=== PATIENT | male | born 1990 | race Caucasian/White ===

== ENCOUNTER 2017-03-05 22:09 | Observation (INO) ==
--- NOTE | 2017-03-05 22:40 | Emergency Department Note ---
Disposition Clinical Impression: Cellulitis of scrotum, Left arm cellulitis, Sepsis, Open wound of scrotum Disposition: Admitted As Inpatient Referrals: Unassigned,Provider [Non-Partnered Physician] - Forms: ED Satisfaction Letter General Adult HPI - General Chief complaint: ED Skin/Abscess/Foreign Body Stated complaint: L arm/testicles red and painful Source: patient Limitations: no limitations - History of Present Illness HPI Narrative: 26-year-old male reports emergency department complaining of swelling and redness of the left triceps area, he thinks he has an infection. The patient reports he had a pimple there and his mother popped it now has become increasingly swollen red and painful. There is no history of bug bite or laceration. The patient also reports scrotal swelling redness and pain with an open lesion, he reports there was a pimple and he popped it and now he thinks he may have an infection. There is no history of perirectal or perennial involvement. The patient is not known to be diabetic. There is no history of vomiting diarrhea or abdominal pain. No acute chest pain or shortness of breath. No leg swelling or pain or syncope. No trauma. The patient is been voiding without difficulty. No back pain or bloody urine. There is no history of fever. No syncope headache neck stiffness convulsions or confusion no trouble walking talking hearing seeing or speaking. He does not report his last tetanus shot was. There is no history of laceration to the genital area or trauma or foreign body. Pain Scale: 6 - Related Data Allergies Allergy/AdvReac Type Severity Reaction Status Date / Time No Known Allergies Allergy Verified 03/05/17 22:19 All systems ED: reviewed and negative except as stated. Past Medical History - Past Medical History Medical history: Reports: no medical history - Social History Smoking Status: Current every day smoker Smokeless Tobacco Status: No Alcohol use: Reports: occasionally Drug use: Reports: none Physical Exam - General Limitations: no limitations General appearance: alert, in no apparent distress - Head Head exam: atraumatic, normocephalic, normal inspection - Eye Eye exam: Present: normal appearance, PERRL, EOMI. Absent: scleral icterus, conjunctival injection, miosis, mydriasis - ENT ENT exam: normal exam, normal oropharynx, mucous membranes moist, TM's normal bilaterally, normal external ear exam - Neck Neck exam: Present: normal inspection, full ROM, trachea midline. Absent: tenderness - Chest Chest inspection: Present: symmetric chest wall rise. Absent: tenderness - Respiratory Respiratory exam: Present: normal lung sounds bilaterally. Absent: respiratory distress, wheezes, stridor, accessory muscle use, prolonged expiratory phase - Cardiovascular Cardiovascular exam: Present: regular rate, normal rhythm, normal heart sounds - Abdominal Exam Abdominal exam: Present: soft, Non-Tender, normal bowel sounds. Absent: tenderness, distention, guarding, rebound, rigidity - Rectal Exam Medical Scientist present during exam: Yes - Male exam: Present: other (Open lesion scrotal area purulent drainage reddening retractile penis no subsequent scrotal or perennial involvement noted. No evidence of bruising or blistering.) - Extremities Exam Extremities exam: Present: full ROM, normal capillary refill, other (Left upper extremity triceps area shows markedly reddening tenderness and change consistent with cellulitis. No fluctuance or abscess noted. There is no evidence of open lesion. No drainage. No scaling blackening of the skin crepitance or blistering. No axillary involvement. All 4 extremities are otherwise warm and well-perfused show good range of motion throughout without evidence of injury or pedro abnormality.). Absent: pedal edema, joint swelling , calf tenderness - Expanded Lower Extremity Exam Lower leg exam: Absent: Homans' sign Neurovascular/Tendon exam: Present: normal capillary refill. Absent: pulse deficit, motor deficit, sensory deficit, tendon deficit, extremity cold to touch , pallor - Back Exam Back exam: Present: normal inspection, full ROM. Absent: tenderness, CVA tenderness (R), CVA tenderness (L), vertebral tenderness - Neurological Exam Neurological exam: Present: alert, oriented X3, CN II-XII intact. Absent: motor sensory deficit - Psychiatric Psychiatric exam: Present: normal affect, normal mood - Skin Skin exam: Present: warm, dry, intact, normal color, erythema, other ( Cellulitic change in the scrotal and left triceps areas noted.). Absent: rash, cyanosis, diaphoresis, pallor, mottled Course - Reevaluation(s) Reevaluation #1: Bedside ultrasound does not demonstrate a large focal abscess that I can see in the arm area, there may be some phlegmonous change. A CT of the upper extremities been ordered for definitive imaging. The patient does not appear to have a scrotal abscess, he has an open lesion that is draining. Wound cultures are been ordered. Antibiotics and tetanus shot of also been ordered IV fluids and been given. The patient has a heart rate over 90 an elevated white count and a source for infection he meets Sirs/sepsis criteria. Lactic acid negative. Pending consultation with the hospitalist for admission. Secondary surgical consult if abscess identified, urologic consult also considered. Vital Signs Temperature 99.5 F 03/05/17 22:15 Pulse Rate 92 03/05/17 22:15 Respiratory Rate 20 03/05/17 22:15 Blood Pressure 138/77 03/05/17 22:15 O2 Sat by Pulse Oximetry 98 03/05/17 22:15 Temperature 99.5 F 03/05/17 22:15 Pulse Rate 92 03/05/17 22:15 Respiratory Rate 20 03/05/17 22:15 Blood Pressure 138/77 03/05/17 22:15 O2 Sat by Pulse Oximetry 98 03/05/17 22:15 Oxygen Delivery Oxygen Delivery Room Air Medical Decision Making - [facility] Narrative Medical decision making narrative: The patient has cellulitis left arm and scrotum. He meets Sirs sepsis criteria. IV fluids vancomycin and Zosyn given. Pain control measures given tetanus booster given. I discussed the case with with Dr. Mejía, urologist who will act as health and safety consultant. I have discussed the case with the hospitalist on-call who has accepted the patient to their care as the primary admitting service. CT scan left humerus pending to evaluate further. The patient is currently stable. - Lab Data Lab results reviewed: Yes I reviewed the patient's lab results. Result diagrams: 03/05/17 22:55 03/05/17 22:55 Lab Results 03/05/17 03/05/17 03/05/17 Range/Units 22:55 22:55 22:55 WBC 14.7 H (4.3-11.1) K/mcL RBC 4.87 (4.19-5.50) M/mcL Hgb 12.6 L (12.9-16.9) g/dL Hct 39.7 (37.5-50.1) % MCV 81.5 L (83.0-100.0) fL MCH 25.9 L (28.0-33.3) pg MCHC 31.7 (31.6-35.5) g/dL RDW 14.6 H (11.5-14.5) % Plt Count 244 (140-400) K/mcL MPV 10.2 (9.4-12.4) fL Immature Gran % 0.5 (0-4) % Seg Neutrophils % 76.0 % Lymphocytes % 13.5 % Monocytes % 6.5 % Eosinophils % 3.0 % Basophils % 0.5 % Neutrophils # 11.2 H (1.6-8.9) K/mcL Lymphocytes # 2.0 (0.6-4.6) K/mcL Monocytes # 1.0 (0.0-1.3) K/mcL Eosinophils # 0.4 (0.0-0.6) K/mcL Basophils # 0.1 (0.0-0.2) K/mcL Immature Plt Fraction 7.1 H (1.1-6.1) % Sodium 139 (136-145) mEq/L Potassium 3.5 (3.5-4.5) mEq/L Chloride 105 (98-109) mEq/L Carbon Dioxide 24 (19-29) mEq/L BUN 9 (8-26) mg/dL Creatinine 0.87 (0.72-1.25) mg/dL Est GFR ( Amer) > 60 (> 60) Est GFR (Non-Af Amer) > 60 (> 60) BUN/Creatinine Ratio 10 (6-26) Glucose 97 (70-99) mg/dL Calculated Osmolality 287 (280-300) Lactic Acid 1.1 (0.5-2.2) mmol/L Calcium 9.0 (8.6-10.8) mg/dL Total Bilirubin 0.6 (0.2-1.2) mg/dL Direct Bilirubin 0.3 (0.0-0.5) mg/dL Indirect Bilirubin 0.3 (0.0-1.2) mg/dL AST 11 (5-34) Units/L ALT 17 (0-55) Units/L Alkaline Phosphatase 102 (38-126) Units/L C-Reactive Protein 105 H (Less than 5) mg/L Serum Total Protein 7.2 (6.0-8.3) g/dL Albumin 3.2 L (3.5-5.0) g/dL Globulin 4.0 H (2.4-3.5) g/dL Albumin/Globulin Ratio 0.8 L (1.1-2.2)
[2017-03-05] MEDS ORDERED: 0.9 % Sodium Chloride 1,000 ML IVC SCH (23:00)
[2017-03-05] MEDS ORDERED: Piperacillin/Tazobactam 3.375 GM in D5% in Water (Mini-Bag+) 100 ML IVPB ONE (23:00)
[2017-03-05] MEDS ORDERED: Tdap (Boostrix) Vaccine 0.5 ML SYRINGE IM ONE (23:00)
[2017-03-05] MEDS ORDERED: Vancomycin 1,000 MG in D5% in Water 250 ML IVPB ONE (23:00)
[2017-03-05] MEDS ORDERED: *HR* OxyCODONE/APAP 5/325 TABLET PO ONE (23:01)
[2017-03-05 23:20] LABS: Basophils # 0.1 K/mcL (0.0-0.2); Basophils % 0.5 %; Eosinophils # 0.4 K/mcL (0.0-0.6); Hematocrit 39.7 % (37.5-50.1); Hemoglobin 12.6 g/dL (12.9-16.9); Immature Granulocytes % 0.5 % (0-4); Immature Platelets 7.1 % (1.1-6.1); Lymphocytes % 13.5 %; Mean Corpuscular HGB Conc 31.7 g/dL (31.6-35.5); Mean Corpuscular Hemoglobin 25.9 pg (28.0-33.3); Mean Corpuscular Volume 81.5 fL (83.0-100.0); Mean Platelet Volume 10.2 fL (9.4-12.4); Monocytes % 6.5 %; Neutrophils # 11.2 K/mcL (1.6-8.9); Platelet Count 244 K/mcL (140-400); Red Blood Count 4.87 M/mcL (4.19-5.50); Red Cell Distribution Width 14.6 % (11.5-14.5)
[2017-03-05 23:34] LABS: Alanine Aminotransferase 17 Units/L (0-55); Albumin 3.2 g/dL (3.5-5.0); Albumin/Globulin Ratio 0.8 (1.1-2.2); Alkaline Phosphatase 102 Units/L (38-126); Aspartate Amino Transferase 11 Units/L (5-34); BUN/Creatinine Ratio 10 (6-26); Bilirubin,Direct 0.3 mg/dL (0.0-0.5); Bilirubin,Indirect 0.3 mg/dL (0.0-1.2); Bilirubin,Total 0.6 mg/dL (0.2-1.2); Blood Urea Nitrogen 9 mg/dL (8-26); C-Reactive Protein 105 mg/L (Less than 5); Carbon Dioxide 24 mEq/L (19-29); Chloride 105 mEq/L (98-109); Glucose 97 mg/dL (70-99); Osmolality,Calculated 287 (280-300); Potassium 3.5 mEq/L (3.5-4.5); Sodium 139 mEq/L (136-145); Total Protein 7.2 g/dL (6.0-8.3); eGFR For African Americans > 60 (> 60); eGFR For Non-African Americans > 60 (> 60)
[2017-03-06] MEDS ORDERED: Naloxone 0.4 MG/ML INJ IVP PRN (00:53)
[2017-03-06] MEDS ORDERED: Ondansetron 4 MG/2 ML VIAL IVP PRN (00:53)
[2017-03-06] MEDS ORDERED: Acetaminophen 325 MG TABLET PO PRN (00:56)
[2017-03-06 01:16] LABS: Bilirubin,Urine Small (Negative); Blood,Urine Negative (Negative); Clarity,Urine Cloudy (Clear); Color,Urine Dark Yellow (Yellow); Glucose,Urine (UA) Normal (Normal); Ketones,Urine Negative (Negative); Leukocyte Esterase,Urine Small (Negative); Nitrite,Urine Negative (Negative); PH,Urine 7.5 pH Units (5.0-8.0); Protein,Urine Trace mg/dL (Neg-Trace); Specific Gravity,Urine > 1.030 (1.010-1.025)
[2017-03-06 01:18] LABS: Bacteria,Urine None Seen per hpf (None-Few); Hyaline Casts,Urine None Seen per lpf (None-Few); RBC,Urine 0-3 per hpf (0-3); Squamous Epithelial Cell,Urine Many per lpf (None-Few); WBC,Urine 15-30 per hpf (0-3)
[2017-03-06] MEDS ORDERED: Nicotine 21 MG PATCH.TD24 TD PRN (01:59)
[2017-03-06] MEDS ORDERED: Vancomycin 1,000 MG in D5% in Water 250 ML IVPB ONE (02:00)
--- NOTE | 2017-03-06 02:04 | Internal Med History&Physical ---
Date of Encounter: 03/06/17 Time of Encounter: 01:30 Assessment and Plan (1) Left arm cellulitis Current visit: Yes Status: Acute CT humerus noted, findings consistent with cellulitis will continue empiric abx therapy with IV vancomycin and Zosyn pharmacy to dose vancomycin and monitor trough follow up blood cultures de-escalate therapy as per clinical response and culture results pain control IV fluids (2) Cellulitis of scrotum Current visit: Yes Status: Acute Open draining wound f/u wound cultures wound care Urology consultation requested by the ER physician continue IV abx (3) Tobacco abuse Current visit: Yes Status: Acute smoking cessation counseling provided not ready to quit at this time nicotine supplementation provided (4) Morbid obesity with BMI of 50.0-59.9, adult Current visit: Yes Status: Chronic (5) DVT prophylaxis Current visit: Yes Status: Acute early ambulation Internal Medicine - H&P: HPI Chief complaint: left arm and scrotum pain Admitted From: Home Plans for Post Hospital Care: Home History of present illness: Mr. Grimm is a 26 year old male with PMH Of morbid obesity and chronic tobacco abuse presents to the ER for evaluation of worsening left arm pain, worsening drainage from scrotum, and fevers/chills. Patient reports of having a small pimple on his left tricep which has gradually progressed into full upper extremity erythema associated with pain. He also states he noticed a small pimple on his scrotum, which has gradually worsened and is currently draining pustular discharge. States he has difficulty walking due to the pain in his scrotum. Reports of having erythema on the scrotum in the past but no history of discharge. Denies any dysuria, or urinary difficulties. Denies any history of STI. At this time he resting in bed and denies any discomfort. Pain is controlled with the pain medications he received in the ER. Denies any sob, abd pain, n/v, fever, or chills at this time. Reports of being an everyday smoker. Past Med Surg Social Fam HX - Past Medical History Medical history: no medical history - Social History Smoking Status: Current every day smoker Smokeless Tobacco Status: No Alcohol use: occasionally Drug use: none Internal Medicine - H&P: Meds Allergies No Known Allergies Allergy (Verified 03/05/17 22:19) All Systems PM: A 10-system review of systems was performed and is negative for pertinent findings except as documented above in the HPI. - Constitutional Constitutional: as per HPI - Constitutional Vitals: Temp Pulse Resp BP Pulse Ox 99.3 F 85 14 133/88 97 03/06/17 01:43 03/06/17 01:43 03/06/17 01:43 03/06/17 01:43 03/06/17 01:43 General appearance: Present: cooperative, A&O X 3, morbidly obese, no acute distress, answers questions appropriately - Head Head exam: Present: atraumatic, normocephalic - Eye Eye exam: Present: normal appearance, conjuntiva pink, sclera anicteric - Respiratory Respiratory exam: Present: CTAB. Absent: respiratory distress, wheezes - Cardiovascular Cardiovascular exam: Present: RRR, +S1, +S2. Absent: diastolic murmur, gallop, rubs, systolic murmur - GI/Abdominal GI/Abdominal exam: Present: distended (obese), normal bowel sounds, soft, no peritoneal signs. Absent: tenderness - Additional comments: (Open lesion scrotal area with purulent drainage, No evidence of bruising or blistering - Extremities Exam Extremities exam: Present: warm, radial pulses palpable and symetrical. Absent : calf tenderness, cyanotic, pedal edema - Skin Additional comments: erythema noted on enid/lateral aspect of left distal arm Internal Med - H&P Results - Labs CBC & Chem 7: 03/05/17 22:55 03/05/17 22:55
[2017-03-06] MEDS: 0.9 % Sodium Chloride 1,000 ML IVC SCH ×2 (04:46→21:54)
[2017-03-06 05:37] LABS: Basophils # 0.1 K/mcL (0.0-0.2); Basophils % 0.5 %; Eosinophils # 0.4 K/mcL (0.0-0.6); Eosinophils % 3.4 %; Hemoglobin 11.5 g/dL (12.9-16.9); Immature Granulocytes % 0.5 % (0-4); Lymphocytes # 2.4 K/mcL (0.6-4.6); Lymphocytes % 18.8 %; Mean Corpuscular HGB Conc 31.9 g/dL (31.6-35.5); Mean Corpuscular Hemoglobin 26.3 pg (28.0-33.3); Mean Corpuscular Volume 82.2 fL (83.0-100.0); Mean Platelet Volume 11.2 fL (9.4-12.4); Monocytes # 0.9 K/mcL (0.0-1.3); Monocytes % 6.9 %; Neutrophils # 8.9 K/mcL (1.6-8.9); Platelet Count 246 K/mcL (140-400); Red Blood Count 4.38 M/mcL (4.19-5.50); Red Cell Distribution Width 14.6 % (11.5-14.5); Segmented Neutrophils % 69.9 %
[2017-03-06 05:39] LABS: BUN/Creatinine Ratio 11 (6-26); Blood Urea Nitrogen 9 mg/dL (8-26); Calcium 8.3 mg/dL (8.6-10.8); Carbon Dioxide 25 mEq/L (19-29); Chloride 106 mEq/L (98-109); Glucose 108 mg/dL (70-99); Magnesium 1.5 mg/dL (1.6-2.6); Osmolality,Calculated 287 (280-300); Phosphorous 4.2 mg/dL (2.3-4.7); Potassium 3.8 mEq/L (3.5-4.5); Sodium 139 mEq/L (136-145); eGFR For African Americans > 60 (> 60); eGFR For Non-African Americans > 60 (> 60)
[2017-03-06] MEDS ORDERED: Vancomycin 1,250 MG in D5% in Water 250 ML IVPB SCH (06:00)
--- NOTE | 2017-03-06 07:58 | Urology - Consult Note ---
Date of Encounter: 03/06/17 Time of Encounter: 07:54 - Assessment and Plan (1) Open wound of scrotum Current Visit: Yes Status: Acute Assessment and plan: continue broad spectrum abx at this time. expect that this will resolve with abx. will reeval tomorrow morning. Qualifiers: Encounter type: initial encounter Qualified Code(s): S31.30XA - Unspecified open wound of scrotum and testes, initial encounter Urology CN:HPI Consult date: 03/06/17 Reason for consult Urology: Other (scrotal cellulutis) Requesting physician: Jackelin Conner History of present illness: Ulysses is a 26-year-old morbidly obese male with a five-day history of scrotal visit which he states spread. Patient is also admitted for left upper arm cellulitis. Patient states that he is not diabetic. NO trouble with voiding. Past Med Surg Social Fam HX - Past Medical History Medical history: no medical history Psychiatric history: depression - Social History Smoking Status: Current every day smoker Smokeless Tobacco Status: No Alcohol use: occasionally Drug use: none - Family History Mother Age: 41 Living Status: Still Living Hx Family Cardiac Disorders: Yes (hypertension) Hx Family Respiratory Disorders: Yes (asthma, copd) Medications and Allergies Allergies No Known Allergies Allergy (Verified 03/05/17 22:19) Review of Systems - Constitutional fever(s) - EENT Nose, mouth and throat: no dizziness - Cardiovascular no chest pain - Respiratory no cough - Gastrointestinal no abdominal pain - Genitourinary as per HPI - Musculoskeletal as per HPI - Integumentary erythema - Neurological no confusion - Psychiatric no anxiety - Hematologic/Lymphatic no easy bleeding Exam Initial Vital Signs Temp Pulse Resp BP Pulse Ox 99.5 F 92 20 138/77 98 03/05/17 22:15 03/05/17 22:15 03/05/17 22:15 03/05/17 22:15 03/05/17 22:15 - General physical appearance Present: well developed - Neck Present: no masses - Respiratory Present: normal respiratory effort - Cardiovascular Cardiovascular exam IM: RRR - Abdomen Abdomen: Present: soft (morbidly obese) - Genitourinary other (inflammed indurated area on right hemiscrotum. some exudate noted. no obvious fluctuance) Urology Results - Labs 03/06/17 04:33 03/06/17 04:33 Abnormal lab results WBC 12.8 K/mcL (4.3-11.1) H 03/06/17 04:33 Hgb 11.5 g/dL (12.9-16.9) L 03/06/17 04:33 Hct 36.0 % (37.5-50.1) L 03/06/17 04:33 MCV 82.2 fL (83.0-100.0) L 03/06/17 04:33 MCH 26.3 pg (28.0-33.3) L 03/06/17 04:33 RDW 14.6 % (11.5-14.5) H 03/06/17 04:33 Immature Plt Fraction 7.1 % (1.1-6.1) H 03/05/17 22:55 Glucose 108 mg/dL (70-99) H 03/06/17 04:33 Calcium 8.3 mg/dL (8.6-10.8) L 03/06/17 04:33 Magnesium 1.5 mg/dL (1.6-2.6) L 03/06/17 04:33 C-Reactive Protein 105 mg/L (Less than 5) H 03/05/17 22:55 Albumin 3.2 g/dL (3.5-5.0) L 03/05/17 22:55 Globulin 4.0 g/dL (2.4-3.5) H 03/05/17 22:55 Albumin/Globulin Ratio 0.8 (1.1-2.2) L 03/05/17 22:55 Urine Clarity Cloudy (Clear) A 03/05/17 22:45 Ur Specific [place] > 1.030 (1.010-1.025) H 03/05/17 22:45 Urine Bilirubin Small (Negative) H 03/05/17 22:45 Urine Urobilinogen 2.0 mg/dL (Normal) H 03/05/17 22:45 Ur Leukocyte Esterase Small (Negative) H 03/05/17 22:45 Urine Microscopic WBC 15-30 per hpf (0-3) H 03/05/17 22:45 Ur Squamous Epith Cells Many per lpf (None-Few) H 03/05/17 22:45 Ur Culture Indicated? YES (NO) A 03/05/17 22:45 Diabetes panel 03/06/17 Range/Units 04:33 Sodium 139 (136-145) mEq/L Potassium 3.8 (3.5-4.5) mEq/L Chloride 106 (98-109) mEq/L Carbon Dioxide 25 (19-29) mEq/L BUN 9 (8-26) mg/dL Creatinine 0.81 (0.72-1.25) mg/dL Glucose 108 H (70-99) mg/dL Calcium 8.3 L (8.6-10.8) mg/dL Calcium panel 03/06/17 Range/Units 04:33 Calcium 8.3 L (8.6-10.8) mg/dL Phosphorus 4.2 (2.3-4.7) mg/dL Pituitary panel 03/06/17 Range/Units 04:33 Sodium 139 (136-145) mEq/L Potassium 3.8 (3.5-4.5) mEq/L Chloride 106 (98-109) mEq/L Carbon Dioxide 25 (19-29) mEq/L BUN 9 (8-26) mg/dL Creatinine 0.81 (0.72-1.25) mg/dL Glucose 108 H (70-99) mg/dL Calcium 8.3 L (8.6-10.8) mg/dL Adrenal panel 03/06/17 Range/Units 04:33 Sodium 139 (136-145) mEq/L Potassium 3.8 (3.5-4.5) mEq/L Chloride 106 (98-109) mEq/L Carbon Dioxide 25 (19-29) mEq/L BUN 9 (8-26) mg/dL Creatinine 0.81 (0.72-1.25) mg/dL Glucose 108 H (70-99) mg/dL Calcium 8.3 L (8.6-10.8) mg/dL All other labs normal. Consult Discharge Plan - Plan Referrals: Oseas Chan DO [Primary Care Provider] -
[2017-03-06] MEDS: *HR* OxyCODONE Immed Rel 5 MG TABLET PO PRN ×2 (08:21→15:48)
[2017-03-06] MEDS: Piperacillin/Tazobactam 3.375 GM in D5% in Water (Mini-Bag+) 100 ML IVPB SCH ×3 (08:22→23:59)
[2017-03-06] MEDS ORDERED: Magnesium Sulfate 2 GM in D5% in Water 100 ML IVPB ONE (11:21)
--- NOTE | 2017-03-06 11:34 | Event Note ---
Date of Encounter: 03/06/17 Time of Encounter: 11:34 26 year old male with no significant medical history, admitted with left arm and right scrotal pain, noted to have cellulitis with no focal abscess in left arm and right srotum; Patient seen and examined at bedside. Reports improvement in left arm and scrotal pain; no fever/chills; Awake, alert, oriented*3, morbidly obese Left UE- erythema, induration mostly in medial proximal arm, improving Scrotum- erythematous; right scrotal small wounds, slight yellowish discharge, improving tenderness Labs reviewed- improving leukocytosis Left arm cellulitis- likely secondary to infected follliculitis. Continue IV Vancomycin and Zosyn and f/up blood cultures. Pain control with PO Percocet; left UE elevation; Right scrotal abscess- unclear etiology. Urology consult appreciated, agree with medical management with antibiotics; f/up wound and blood cultures and adjust antibiotics;
[2017-03-06] MEDS: Vancomycin 2,000 MG in D5% in Water 500 ML IVPB SCH ×2 (13:19→23:58)
[2017-03-07 05:12] LABS: Basophils # 0.1 K/mcL (0.0-0.2); Basophils % 0.8 %; Eosinophils # 0.4 K/mcL (0.0-0.6); Eosinophils % 3.6 %; Hematocrit 37.4 % (37.5-50.1); Hemoglobin 11.7 g/dL (12.9-16.9); Immature Granulocytes % 0.7 % (0-4); Lymphocytes # 2.1 K/mcL (0.6-4.6); Lymphocytes % 18.4 %; Mean Corpuscular HGB Conc 31.3 g/dL (31.6-35.5); Mean Corpuscular Hemoglobin 25.6 pg (28.0-33.3); Mean Corpuscular Volume 81.8 fL (83.0-100.0); Mean Platelet Volume 10.6 fL (9.4-12.4); Monocytes % 8.4 %; Neutrophils # 7.9 K/mcL (1.6-8.9); Platelet Count 255 K/mcL (140-400); Red Blood Count 4.57 M/mcL (4.19-5.50); Red Cell Distribution Width 14.6 % (11.5-14.5); Segmented Neutrophils % 68.1 %
[2017-03-07 05:16] LABS: BUN/Creatinine Ratio 11 (6-26); Blood Urea Nitrogen 8 mg/dL (8-26); Calcium 8.5 mg/dL (8.6-10.8); Carbon Dioxide 25 mEq/L (19-29); Chloride 108 mEq/L (98-109); Glucose 106 mg/dL (70-99); Magnesium 1.8 mg/dL (1.6-2.6); Osmolality,Calculated 287 (280-300); Potassium 3.7 mEq/L (3.5-4.5); Sodium 139 mEq/L (136-145); eGFR For African Americans > 60 (> 60); eGFR For Non-African Americans > 60 (> 60)
[2017-03-07] MEDS: Piperacillin/Tazobactam 3.375 GM in D5% in Water (Mini-Bag+) 100 ML IVPB SCH ×2 (09:07→16:30)
--- NOTE | 2017-03-07 09:09 | Urology Progress Note ---
Date of Encounter: 03/07/17 Time of Encounter: 09:04 - Assessment and Plan (1) Open wound of scrotum Current Visit: Yes Status: Acute Assessment and plan: Continue with antibiotics until cultures return. will continue to follow. Qualifiers: Encounter type: initial encounter Qualified Code(s): S31.30XA - Unspecified open wound of scrotum and testes, initial encounter Progress Note Narrative: patient seen. feeling better. scrotal culture positive. Objective Initial Vital Signs Temp Pulse Resp BP Pulse Ox 99.5 F 92 20 138/77 98 03/05/17 22:15 03/05/17 22:15 03/05/17 22:15 03/05/17 22:15 03/05/17 22:15 - General physical appearance Present: well developed - Abdomen Present: soft - Genitourinary Present: other (I was able to express a small amount of pus from the patient's scrotal wound. This came from a small pocket.) - Labs 03/07/17 04:03 03/07/17 04:03 Diabetes panel 03/07/17 Range/Units 04:03 Sodium 139 (136-145) mEq/L Potassium 3.7 (3.5-4.5) mEq/L Chloride 108 (98-109) mEq/L Carbon Dioxide 25 (19-29) mEq/L BUN 8 (8-26) mg/dL Creatinine 0.75 (0.72-1.25) mg/dL Glucose 106 H (70-99) mg/dL Calcium 8.5 L (8.6-10.8) mg/dL Calcium panel 03/07/17 Range/Units 04:03 Calcium 8.5 L (8.6-10.8) mg/dL Pituitary panel 03/07/17 Range/Units 04:03 Sodium 139 (136-145) mEq/L Potassium 3.7 (3.5-4.5) mEq/L Chloride 108 (98-109) mEq/L Carbon Dioxide 25 (19-29) mEq/L BUN 8 (8-26) mg/dL Creatinine 0.75 (0.72-1.25) mg/dL Glucose 106 H (70-99) mg/dL Calcium 8.5 L (8.6-10.8) mg/dL Adrenal panel 03/07/17 Range/Units 04:03 Sodium 139 (136-145) mEq/L Potassium 3.7 (3.5-4.5) mEq/L Chloride 108 (98-109) mEq/L Carbon Dioxide 25 (19-29) mEq/L BUN 8 (8-26) mg/dL Creatinine 0.75 (0.72-1.25) mg/dL Glucose 106 H (70-99) mg/dL Calcium 8.5 L (8.6-10.8) mg/dL Consult Discharge Plan - Plan Referrals: Oseas Chan DO [Primary Care Provider] -
--- NOTE | 2017-03-07 10:56 | Internal Med Progress Note ---
Date of Encounter: 03/07/17 Time of Encounter: 10:55 - Assessment and plan (1) Cellulitis of scrotum Current Visit: Yes Status: Acute Assessment and plan: improving but continues to have a small superficial wound, draining; Urology on board; continue IV Vancomycin and Zosyn; preliminary wound culture grows GPC, f/ up final cultures; blood cultures negative; (2) Left arm cellulitis Current Visit: Yes Status: Acute Assessment and plan: improving; plan with IV antibiotics as above; no wound culture as there is no draining wound; likely same causative organism as scrotal wound; hold IV hydration; left UE elevation and supportive care; (3) Tobacco abuse Current Visit: Yes Status: Chronic (4) Morbid obesity with BMI of 50.0-59.9, adult Current Visit: Yes Status: Chronic Assessment and plan: Noted to have elevated BP; will hold IV hydration and hold off on meds at this time, would recommend weight loss, dietary modification and outpatient f/up; - Subjective Interval history: Feels better with improvement in left arm pain; continues to have some discharge from scrotal wound; no fever/chills; - Constitutional Vitals: Temp Pulse Resp BP Pulse Ox 98.0 F 93 16 145/93 93 03/07/17 07:33 03/07/17 07:33 03/07/17 07:33 03/07/17 07:33 03/07/17 07:33 General appearance: Present: cooperative, A&O X 3, morbidly obese, no acute distress, answers questions appropriately - Respiratory Respiratory exam: Present: CTAB. Absent: accessory muscle use, rales, rhonchi, wheezes - Cardiovascular Cardiovascular exam: Present: RRR, +S1, +S2. Absent: diastolic murmur, gallop, rubs, systolic murmur - Skin Skin exam: Present: dry, intact Additional comments: left UE- improving erythema with focal area of induration over medial proximal arm close to axilla Internal Medicine: Result - Labs CBC & Chem 7: 03/07/17 04:03 03/07/17 04:03 Labs: Short CBC 03/07/17 Range/Units 04:03 WBC 11.6 H (4.3-11.1) K/mcL Hgb 11.7 L (12.9-16.9) g/dL Hct 37.4 L (37.5-50.1) % Plt Count 255 (140-400) K/mcL Neutrophils # 7.9 (1.6-8.9) K/mcL BMP 03/07/17 04:03 Sodium 139 Potassium 3.7 Chloride 108 Carbon Dioxide 25 BUN 8 Creatinine 0.75 Glucose 106 H Calcium 8.5 L Consult Discharge Plan - Plan Referrals: Oseas Chan DO [Primary Care Provider] -
[2017-03-07] MEDS: 0.9 % Sodium Chloride 1,000 ML IVC SCH (12:03)
[2017-03-07] MEDS: *HR* OxyCODONE Immed Rel 5 MG TABLET PO PRN ×3 (12:30→23:03)
[2017-03-07] MEDS: Vancomycin 2,000 MG in D5% in Water 500 ML IVPB SCH (12:35)
[2017-03-08] MEDS: Piperacillin/Tazobactam 3.375 GM in D5% in Water (Mini-Bag+) 100 ML IVPB SCH ×2 (00:32→08:11)
[2017-03-08] MEDS: Vancomycin 2,000 MG in D5% in Water 500 ML IVPB SCH (00:41)
[2017-03-08] MEDS: *HR* OxyCODONE Immed Rel 5 MG TABLET PO PRN (05:54)
--- NOTE | 2017-03-08 06:54 | Urology Progress Note ---
Date of Encounter: 03/08/17 Time of Encounter: 06:53 - Assessment and Plan (1) Open wound of scrotum Current Visit: Yes Status: Acute Assessment and plan: can switch to po abx when ok with primary team. f/u in 2-3 weeks for eval of resolution. call with questions. Qualifiers: Encounter type: initial encounter Qualified Code(s): S31.30XA - Unspecified open wound of scrotum and testes, initial encounter Progress Note Narrative: patient seen. states scrotum feeling much better. states that arm wound started to drain sig this am. Objective Initial Vital Signs Temp Pulse Resp BP Pulse Ox 99.5 F 92 20 138/77 98 03/05/17 22:15 03/05/17 22:15 03/05/17 22:15 03/05/17 22:15 03/05/17 22:15 - General physical appearance Present: well developed - Abdomen Present: soft - Genitourinary Present: other (scrotum wound without fluctuance. still with some induration) - Labs 03/07/17 04:03 03/07/17 04:03 Consult Discharge Plan - Plan Referrals: Oseas Chan DO [Primary Care Provider] -
[2017-03-08 07:52] VITALS: BP 135/74
--- NOTE | 2017-03-08 10:31 | Discharge Summary ---
Date of Encounter: 03/08/17 Time of Encounter: 10:28 - Discharge Diagnosis (1) Cellulitis of scrotum Priority: Primary Status: Acute (2) Left arm cellulitis Priority: Primary Status: Acute (3) Tobacco abuse Priority: Secondary Status: Chronic (4) Morbid obesity with BMI of 50.0-59.9, adult Priority: Secondary Status: Chronic - Discharge Medications Prescriptions: OxyCODONE/APAP 5/325 [Percocet 5/325 MG] 1 each PO Q6HR PRN #20 tablet PRN Reason: Pain Amoxicillin/Clavulanate [Augmentin] 875 mg PO BIDWM #20 tablet Home Medications: Escitalopram [Lexapro] 10 mg PO DAILY 03/06/17 [History] Amoxicillin/Clavulanate [Augmentin] 875 mg PO BIDWM #20 tablet 03/08/17 [Rx] OxyCODONE/APAP 5/325 [Percocet 5/325 MG] 1 each PO Q6HR PRN #20 tablet 03/08/17 [Rx] Allergies/Adverse Reactions: Allergies No Known Allergies Allergy (Verified 03/05/17 22:19) Date of admission: 03/06/17 00:57 Primary care physician: Oseas Chan DO Consults: 03/07/17 19:08 Consult to Invasive Line Access Team [CONS] Routine Reason for Consult: limited vascular access Line Type: EPIV Discharging clinician: Dorinda Christiansen Anticipated date of discharge: 03/08/17 - Patient Status Disposition: Home, Self-Care Condition: Good Functional capacity at discharge: independent ambulation Overall status at discharge: patient is progressing back to baseline - Discharge Instructions Follow Up With: Rey Coles DO [Resident] - 03/15/17 3:45 pm Additional Instructions: F/up with PCP in 1-2 weeks - Diet and Activity Activity: resume usual activities as tolerated Diet: low fat, low cholesterol, low salt diet Hospital course: Mr. Grimm is a 26 year old male with morbid obesity, who was admitted with painful left upper arm and right scrotum. He was noted to have cellulitis of proximal left upper arm and right scrotal skin. He was started on broad- spectrum IV antibiotics-vancomycin and Zosyn along with IV hydration and pain control with when necessary IV morphine and oral Percocet. His pain and symptoms gradually improved. Urology was consulted and patient was noted to have a superficial draining wound on right scrotum, which improved during his hospitalization. Blood cultures remain negative and wound culture from the scrotum eventually grew MSSA and patient is currently medically stable for discharge with oral antibiotics and outpatient follow-up. He was noted to have slightly elevated blood pressure, SBP in 130s, which could be due to IV hydration/morbid obesity/pain. He was encouraged to discuss this during his outpatient medical follow-up and he is currently not being started on any antihypertensive. Lifestyle modifications like low-sodium diet and weight loss have been encouraged. - Time Spent with Patient Total time spent providing and/or coordinating discharge services: Greater than 30 minutes (45 min) - Constitutional Vitals: Temp Pulse Resp BP Pulse Ox 98.5 F 67 18 135/74 96 03/08/17 07:43 03/08/17 07:43 03/08/17 07:43 03/08/17 07:43 03/08/17 07:43 General appearance: Present: cooperative, A&O X 3, morbidly obese, no acute distress, answers questions appropriately - Cardiovascular Cardiovascular exam: Present: RRR, +S1, +S2. Absent: diastolic murmur, gallop, rubs, systolic murmur - Skin Skin exam: Present: dry, intact Additional comments: improved erythema and induration over left medial proximal arm, slight serous drainage+
[2017-03-08] MEDS ORDERED: Aminoglycoside Consult 1 EACH MC ONE (12:29)
== END 2017-03-08 12:30 | disposition home or self-care (01) ==
LOC: EMEROO 22:09 → 3ANU 22:09
PROVIDERS: ADMIT Internal Medicine; ATTEND Internal Medicine